=== PATIENT | female | born 1990 | race Caucasian/White ===

== ENCOUNTER 2019-10-15 20:22 | Emergency (ER) | payer OTHER, SELFPAY ==
[2019-10-15 20:24] VITALS: BP 127/76; PULSE 72; RESP 16; TEMP 36.4; O2SAT 100
--- NOTE | 2019-10-15 21:00 | ED.GENADULT ---
HPI - General Adult General Chief complaint: Animal Bite Stated complaint: dog bite Time Seen by Provider: 10/15/19 20:55 Source: patient Mode of arrival: ambulatory Limitations: no limitations History of Present Illness HPI narrative: 29-year-old female patient presents to the emergency department with complaints of a wound to her chin from her dog bite. Patient states that she was trying to separate her dog from a neighbor's dog and states that her dog came up and bit her chin as well as her right index finger. Patient unsure of when her last tetanus shot was. Patient states that her dog is up-to-date on all vaccines. Related Data Home Medications Medication Instructions Recorded Confirmed fluconazole 10/15/19 loratadine [Claritin] 10 mg PO DAILY 10/15/19 norethindrone-e.estradiol-iron tablet 10/15/19 [] Allergies Allergy/AdvReac Type Severity Reaction Status Date / Time No Known Allergies Allergy Verified 10/15/19 20:31 Review of Systems Review of Systems: Narrative: CONSTITUTIONAL: Denies fever, chills, or sweats. EYES: Denies visual changes, redness, or discharge. ENT: Denies rhinorrhea, congestion, sore throat, or otalgia. CARDIOVASCULAR: Denies chest pain, palpitations, or edema. RESPIRATORY: Denies cough or dyspnea. GASTROINTESTINAL: Denies abdominal pain, nausea, vomiting, or diarrhea. GENITOURINARY: Denies dysuria or hematuria. SKIN: Denies rash or itching. Positive laceration to chin and superficial dog bite to right index finger MUSCULOSKELETAL: Denies back pain, joint pain, or myalgia. NEUROLOGIC: Denies headache, numbness, or weakness. PSYCHIATRIC: Denies anxiety or depression. [facility] Family History Family History Other Diabetes mellitus Family history of cardiovascular disease Hypertension Social History Social History Alcohol intake: current Gender identity (if verbalized by the patient): Female Comments At the time of my signature I agree with nursing past medical history, surgical, social, and family history. There is no relevant family history pertinent to the presenting complaint. Exam Narrative: Exam Narrative: GENERAL: Well-appearing, well-nourished, and in no acute distress. HEAD: Normocephalic, atraumatic. EYES: PERRLA and EOMI. ENT: Nares clear, no rhinorrhea or epistaxis. Mucous membranes moist. NECK: Supple. No lymphadenopathy CHEST: Clear to auscultation. No respiratory distress. HEART: Regular rate and rhythm. No murmur heard. Normal peripheral pulses. ABDOMEN: Soft, nontender, nondistended, normal active bowel sounds. EXTREMITIES: Normal range of motion. No edema. SKIN: Warm, dry, no rash. Patient has approximately 1 cm vertical laceration to the right side of her chin. There is some active bleeding noted. Patient does have good range of motion. Patient has superficial bite to the dorsal and palmar side of the right index finger over the DIP joint area. There is no active bleeding or open wound to the area. NEURO: No focal deficits. Alert and oriented x3. Course Vital Signs Vital signs: Vital Signs Temperature 36.4 C L 10/15/19 20:24 Pulse Rate 72 10/15/19 20:24 Respiratory Rate 16 10/15/19 20:24 Blood Pressure 127/76 10/15/19 20:24 Pulse Oximetry 100 10/15/19 20:24 Temperature 36.4 C L 10/15/19 20:24 Pulse Rate 72 10/15/19 20:24 Respiratory Rate 16 10/15/19 20:24 Blood Pressure 127/76 10/15/19 20:24 Pulse Oximetry 100 10/15/19 20:24 Vital signs reviewed. Procedures Laceration Laceration 1: Date: 10/15/19 Time: 21:03 Site: face (Right chin) Size (cm): 1 Description: linear Depth: simple, single layer Local Anesthetic: none Pre-repair: wound explored and irrigated ====== Skin Level ====== Skin layer closed with: dermabond and ster
[2019-10-15] MEDS: TETANUS,DIPHTHERIA,AC PERTUSSIS ADULT (0.5 ML) BOOSTRIX IM (21:08)
[2019-10-15] MEDS: AMOXICILLIN/CLAVULANATE K 875-125 MG TAB 1 TABLET PO (21:17)
== END 2019-10-15 21:23 | disposition home or self-care (01) ==
PROVIDERS: Emergency Provider Nurse Practitioner Family
DX: S00.87XA Other superficial bite of other part of head, initial encounter (principal); W54.0XXA Bitten by dog, initial encounter; Z23 Encounter for immunization
CPT/HCPCS: 12011; 90471; 90715; 99283; A9270